=== PATIENT | female | born 1970 | race Two or more races ===

== ENCOUNTER 2022-08-15 20:52 | Emergency (ER) | payer OTHER ==
[~2022-08-15] VITALS: Ht 154.9 cm; Wt 67.1 kg
[2022-08-16] MEDS ORDERED: ONDANSETRON ODT4 MG PO (01:18)
[2022-08-16] MEDS ORDERED: INTESTINEX680 M1 PO (01:18)
[2022-08-16] MEDS ORDERED: PEPCID40 MG PO (01:18)
== END 2022-08-16 01:26 ==
LOC: ER 20:52
DX: R10.9 Unspecified abdominal pain (principal); R11.10 Vomiting, unspecified; R42 Dizziness and giddiness; R19.7 Diarrhea, unspecified